=== PATIENT | male | born 1985 | race African-American/Black ===

== ENCOUNTER → 2021-08-24 | Outpatient (CLI) | payer OTHER ==
--- NOTE | 2021-08-24 14:11 | XR ---
Bilateral hips HISTORY: M25.562,M25.561 2 views of each knee submitted, correlation to left knee 07/22/2015 Bone mineralization, joint spaces, alignment are stable on the left, there is a large enthesophyte at the insertion of the quadriceps tendon on the left, spurring is present at the patellofemoral joint bilaterally. Excrescence at the inferior margin of the patella on the right greater than left likely represents enthesophyte. 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
== END | disposition home or self-care (01) ==
LOC: RADXRMAIN 09:11
PROVIDERS: ATTEND Internal Medicine
DX: M17.0 Bilateral primary osteoarthritis of knee (principal)

== ENCOUNTER → 2021-12-07 | Outpatient (CLI) | payer OTHER ==
--- NOTE | 2021-12-07 11:55 | MR ---
EXAMINATION TYPE: MR knee LT wo con DATE OF EXAM: 12/07/2021 COMPARISON: Plain film 08/24/2021 HISTORY: L knee pain TECHNIQUE: Multiplanar, multisequence imaging of the left knee is performed without IV contrast. FINDINGS: Large enthesophyte is present at the superior aspect of the patella, insertion of the quadr iceps tendon MEDIAL MENISCUS: Anterior and posterior horns are intact without tear. LATERAL MENISCUS: Anterior and posterior horns are intact without tear. CRUCIATE LIGAMENTS: The anterior and posterior cruciate ligaments are intact and unremarkable. COLLATERAL LIGAMENTS: The medial collateral ligament and lateral collateral ligament complex are inta ct and unremarkable. EXTENSOR MECHANISM: Visualized quadriceps and patellar tendons are intact. EFFUSION: Suprapatellar joint effusion is present extending about the distal femur bilaterally POPLITEAL CYST: small popliteal/guo cyst measures 11 x 8 x 8 mm. TRICOMPARTMENT SPACES: Maintained CARTILAGE: There is some chondromalacia present noted on sagittal image 13 at the medial aspect of th e lateral femoral condyle grade 3 to grade 4 BONE MARROW SIGNAL: Some reactive marrow signal changes are suspected along the lateral femoral condy le OTHER: Tricompartmental marginal spurring is present, some reactive marrow signal change also suspec edna along the proximal tibia anteriorly the medial aspect IMPRESSION: There are changes of osteoarthritis, joint effusion, additional findings above
--- NOTE | 2021-12-07 12:05 | MR ---
EXAMINATION TYPE: MR knee RT wo con DATE OF EXAM: 12/07/2021 COMPARISON: Plain film 08/24/2021 HISTORY: R knee pain, patellar tenderness TECHNIQUE: Multiplanar, multisequence imaging of the right knee is performed without IV contrast. FINDINGS: Large enthesophyte present at the origin of the patellar tendon is noted MEDIAL MENISCUS: Anterior and posterior horns are intact without tear. Marginal signal noted on coron al image #28 does not appear to extend to the articular surface LATERAL MENISCUS: Abnormal signal present within the posterior horn of the lateral meniscus, sagittal image 2028, axial image #10, coronal image #26 consistent with tear, pseudoextrusion is present of t he body of the lateral meniscus, abnormal increased signal present within the body noted CRUCIATE LIGAMENTS: The anterior and posterior cruciate ligaments are intact and unremarkable. COLLATERAL LIGAMENTS: The medial collateral ligament and lateral collateral ligament complex are inta ct and unremarkable. EXTENSOR MECHANISM: Visualized quadriceps and patellar tendons are intact. EFFUSION: Small suprapatellar joint effusion is noted. 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
== END | disposition home or self-care (01) ==
LOC: RADMRIMAIN 08:31
PROVIDERS: ATTEND Orthopaedic Surgery
DX: M17.0 Bilateral primary osteoarthritis of knee (principal); M25.462 Effusion, left knee; M25.461 Effusion, right knee; M94.262 Chondromalacia, left knee; M94.261 Chondromalacia, right knee; M71.22 Synovial cyst of popliteal space [Baker], left knee; M23.251 Derangement of posterior horn of lateral meniscus due to old tear or injury, right knee